=== PATIENT | female | born 1970 | race Caucasian/White ===

== ENCOUNTER → 2020-11-05 | Outpatient (CLI) | payer MEDICAID ==
--- NOTE | 2020-11-09 08:54 | MM ---
Reason for exam: screening (asymptomatic). Last mammogram was performed 7 years ago. History: Patient is postmenopausal and is nulliparous. Excisional biopsy of the left breast. Took hormonal contraceptives for 8 years. Physical Findings: A clinical breast exam by your physician is recommended on an annual basis and results should be correlated with mammographic findings. MG 3D Screening Mammo W/Cad Bilateral CC and MLO view(s) were taken. Prior study comparison: October 27, 2013, [facility] DIGITAL RIGHT MAMMOGRAM w/CAD. October 14, 2013, bilateral digital screening mammo w/CAD. The breast tissue is heterogeneously dense. This may lower the sensitivity of mammography. Areas of asymmetric density do not clearly persist on 3D images. Some low density circumscribed nodularity becomes apparent on 3D images. No significant changes when compared with prior studies. ASSESSMENT: Benign, BI-RAD 2 RECOMMENDATION: Routine screening mammogram of both breasts in 1 year. Patient should continue monthly self breast exams. A negative report should not preclude additional follow up of suspicious palpable abnormalities.
== END | disposition home or self-care (01) ==
LOC: RADMAMWWP 15:32
PROVIDERS: ATTEND Family Medicine
DX: Z12.31 Encounter for screening mammogram for malignant neoplasm of breast (principal)
CPT/HCPCS: 77063; 77067

== ENCOUNTER → 2022-06-30 | Outpatient (CLI) | payer MEDICAID | END | disposition home or self-care (01) | LOC: LABWHC1 13:29 | PROVIDERS: ATTEND Surgery Plastic and Reconstructive Surgery | DX: I11.9 Hypertensive heart disease without heart failure (principal) | CPT/HCPCS: 93005 ==

== ENCOUNTER 2022-07-13 05:56 | Day surgery (SDC) | payer MEDICAID ==
[2022-07-11 14:47] VITALS: BMI 26.6
[2022-07-12 10:36] LABS: HCT 37.4 % (34.0-46.0); HGB 11.9 gm/dL (11.4-16.0); MCH 30.9 pg (25.0-35.0); MCHC 31.9 g/dL (31.0-37.0); MCV 96.8 fL (80.0-100.0); Mean Platelet Volume 8.6; Platelet Count 227 k/uL (150-450); RBC 3.86 m/uL (3.80-5.40); RDW 13.3 % (11.5-15.5); WBC 4.8 k/uL (3.8-10.6)
--- NOTE | 2022-07-13 05:27 | P.GSHP ---
History of Present Illness H&P Date: 07/13/22 CHIEF COMPLAINT: Ventral hernia. HISTORY OF PRESENT ILLNESS: The patient is a 51-year-old female who presents with swelling along the abdomen for over 1 month with pain and tenderness. Findings were consistent with ventral hernia. Now she presents for further evaluation and management. PAST MEDICAL HISTORY: Please see list and reviewed. PAST SURGICAL HISTORY: Please see list and reviewed. MEDICATIONS: Please see list and reviewed. ALLERGIES: Please see list and reviewed. SOCIAL HISTORY: Please see list and reviewed. FAMILY HISTORY: No reports of Crohn disease or ulcerative colitis. REVIEW OF ORGAN SYSTEMS: CONSTITUTIONAL: No reports of fevers or chills. GI: Denies any blood in stools or constipation. HEENT: Denies any trouble with vision, hearing or nosebleeds. No difficulty swallowing. LYMPHATIC: The patient denies any lumps and bumps around the neck. ENDOCRINE: Denies any thyroid disorders. Denies any blood sugar glucose intolerance. RESPIRATORY: Denies pneumonia. Denies any troubles with breathing or dyspnea on exertion. CARDIOVASCULAR: Denies any chest pain, palpitations, or recent heart attacks. GENITOURINARY: Denies any blood in urine or increased urinary frequency. MUSCULOSKELETAL: Denies any back pain, stiffness, joint arthritis. NEUROLOGIC: Denies any numbness or tingling along the distal extremities. No seizure disorders or headaches. PSYCHIATRIC: Denies depression. No suidical ideation. HEMATOLOGIC: Denies any abnormal bleeding or bruising. BREASTS: Denies any breast lumps, pain or nipple discharge. PHYSICAL EXAM: VITAL SIGNS: Stable GENERAL: Well-developed pleasant female in no acute distress. HEENT: No scleral icterus. Extraocular movements grossly intact. Moist buccal mucosa. NECK: Supple without lymphadenopathy. CHEST: Unlabored respirations. Equal bilateral excursions. CARDIOVASCULAR: Regular rate and rhythm. Distal 2+ pulses. ABDOMEN: Soft, nondistended. Tender along the abdomen. Umbilical hernia. Protuberant. MUSCULOSKELETAL: No clubbing, cyanosis, or edema. SKIN: Well perfused. PSYCH: Alert and oriented. No focal or lateralizing signs. ASSESSMENT: 1. Ventral/umbilical hernia PLAN: 1. Recommend proceeding with robotic ventral hernia repair with mesh. 2. Benefits and risks of surgical intervention was discussed including possibility of open technique. 3. DVT prophylaxis. 4. Antibiotic prophylaxis. Past Medical History Past Medical History: No Reported History Additional Past Medical History / Comment(s): INCISIONAL HERNIA History of Any Multi-Drug Resistant Organisms: None Reported Past Surgical History: Tubal Ligation Additional Past Surgical History / Comment(s): LT BREAST LUMPECTOMY-BENIGN Past Anesthesia/Blood Transfusion Reactions: No Reported Reaction Smoking Status: Never smoker - Past Family History Mother Family Medical History: No Reported History Medications and Allergies Home Medications Medication Instructions Recorded Confirmed Type Cetirizine HCl [Zyrtec] 10 mg PO DAILY 11/03/14 07/11/22 History Multivit with Calcium,Iron,Min 1 each PO DAILY 07/11/22 07/11/22 History [Women's Multivitamin] Allergies Allergy/AdvReac Type Severity Reaction Status Date / Time adhesive Allergy Rash/Hives Verified 07/11/22 14:29 Results - Labs 07/12/22 10:30
[~2022-07-13 05:56] MED LIST: ACETAMINOPHEN TAB 500 MG TAB PO PRN; HEPARIN SODIUM,PORCINE/PF 5,000 UNIT/0.5 ML SYRINGE SQ PRN; LACTATED RINGERS 1,000 ML IV SCH; ONDANSETRON 4 MG/2 ML VIAL IVP ONE; SCOPOLAMINE 1 MG/72 HR PATCH TRANSDERM STA
[2022-07-13] MEDS ORDERED: GABAPENTIN 300 MG CAP PO PRN (06:00)
[2022-07-13] MEDS ORDERED: MELOXICAM 7.5 MG TAB PO PRN (06:00)
[2022-07-13] MEDS ORDERED: FAMOTIDINE 20 MG TAB PO ONE (06:00)
[2022-07-13] MEDS ORDERED: ONDANSETRON 4 MG/2 ML VIAL ONE ×2 (06:54→12:22)
[2022-07-13] MEDS ORDERED: fentaNYL (PF) 50 MCG/ML 2 ML AMP IV PRN (07:00)
[2022-07-13] MEDS ORDERED: DEXAMETHASONE SOD PHOSPHATE 4 MG/ML 1 ML VIAL IVP ONE (07:01)
[2022-07-13] MEDS ORDERED: MIDAZOLAM 2 MG/2 ML VIAL IVP ONE (07:11)
[2022-07-13] MEDS ORDERED: fentaNYL (PF) 50 MCG/ML 2 ML AMP IVP ONE (07:12)
[2022-07-13 07:27] LABS: Glucose,Whole Blood 84 mg/dL (70-110)
[2022-07-13] MEDS ORDERED: MIDAZOLAM 2 MG/2 ML VIAL ONE (08:09)
[2022-07-13] MEDS ORDERED: HYDROmorphone (PF) 1 MG/ML ONE (08:09)
[2022-07-13] MEDS ORDERED: NEOSTIGMINE 1 MG/ML 10 ML VIAL ONE (08:09)
[2022-07-13] MEDS ORDERED: ROPIVACAINE 5 MG/ML 30 ML VIAL ONE (08:09)
[2022-07-13] MEDS ORDERED: SODIUM CHLORIDE 0.9% (PF) 10 ML VIAL ONE (08:09)
[2022-07-13] MEDS ORDERED: ROCURONIUM 10 MG/ML (5 ML VIAL) IV ONE (08:09)
[2022-07-13] MEDS ORDERED: LIDOCAINE 2% INJ 20 MG/ML (2 ML VIAL) ONE (08:09)
[2022-07-13] MEDS ORDERED: PHENYLEPHRINE-0.9% NACL SYG 1,000 MCG/10 ML SYRINGE ONE (08:09)
[2022-07-13] MEDS ORDERED: SUCCINYLCHOLINE CHLORIDE 200 MG/10 ML VIAL IV ONE (08:09)
[2022-07-13] MEDS ORDERED: GLYCOPYRROLATE 0.2 MG/ML 2 ML VIAL ONE (08:09)
[2022-07-13] MEDS ORDERED: fentaNYL (PF) 50 MCG/ML 2 ML AMP ONE (08:09)
[2022-07-13] MEDS ORDERED: PROPOFOL 10 MG/ML 20 ML VIAL IV ONE (08:09)
--- NOTE | 2022-07-13 08:29 | P.ANPRN ---
Procedure Note - Anesthesia - Nerve Block Performed Bilateral Rectus Abdominis Time Out Performed: Yes (07:) Date of Procedure: 07/13/22 Procedure Start Time: Procedure Stop Time: Location of Patient: PreOp Indication: Acute Post-Operative Pain, Requested by Surgeon (Dr Borjas) Sedation Type: Sedate with meaningful contact maintained Preparation: Sterile Prep Position: Supine Catheter: None Needle Types: Pajunk Needle Gauge: 21 Ultrasound used to visualize needle placement: Yes Ultrasound used to observe medication spread: Yes Injectate: 0.5% Ropivacaine (see comment for volume) (15cc +10cc PF Normal saline each side) Blood Aspirated: No Pain Paresthesia on Injection Noted: No Resistance on Injection: Normal Image Stored and Saved: Yes Events: Uneventful and Well Tolerated
[2022-07-13] MEDS ORDERED: BUPIVACAIN-EPI 0.25%-1:200,000 30 ML VIAL SQ ONE (08:38)
[2022-07-13] MEDS ORDERED: LACTATED RINGERS 1,000 ML IV ONE ×2 (09:28→12:31)
[2022-07-13 09:46] VITALS: TEMP 96.8
--- NOTE | 2022-07-13 09:48 | P.OP ---
Date of Procedure: 07/13/22 Description of Procedure: SURGEON: STEPH FUENTES MD PREOPERATIVE DIAGNOSES: 1. Initial incarcerated incisional hernia POSTOPERATIVE DIAGNOSES: 1. Initial incarcerated incisional hernia, 2 x 3 cm OPERATION: 1. Robotic-assisted da Marce Xi laparoscopic repair of initial incarcerated in cisional ventral hernia with mesh, ventralight ST mesh 11.4 cm Anesthesia: GETA, regional, local Estimated Blood Loss (ml): 5 Pathology: 1. Incarcerated umbilical incisional hernia defect COMPLICATIONS: None. Operative Findings: 1. Incisional hernia defect 2 x 3 cm 2. Fascia repaired using #1 V-lock suture INDICATIONS: The patient is a 51-year-old female who presents with abdominal farrukh n and prior surgery through the umbilicus. Surgical intervention with laparoscopic versus robotic and open techniques were reviewed. Placement of mesh was also reviewed. Benefits and risks were thoroughly described. Informed consent was obtained. DESCRIPTION OF PROCEDURE: The patient was brought into the operating room and laid in supine position. After general induction, the abdomen had been prepped and draped in standard sterile fashion. Ioban draping was also placed. Prior to incision, a timeout protocol was confirmed with surgical team regarding the patient's name including procedures to be performed. The robot was primed prior to the procedure. A field block using local anesthetic was placed along hernia site including the proposed port sites. Initial incision was made with an #11 blade along the left upper quadrant. A 0 degree 5 mm laparoscopic trocar entry was performed and insufflated. Three 8 mm ports were placed along the left lateral abdominal wall under direct localization after exchanging the 5-mm for an 8 mm port. Placements of the ports were 15 cm from the target anatomy and 10 cm apart. An accessory 12 mm port was placed at the left upper quadrant for exchange of mesh including sutures. The [employer] Xi robot was previously primed, prepped and draped then docked from the right side of the patient onto the left side of the patient. I then sat at the robot [employer] Xi console where working arms of the robot including Bovie cautery connected to robotic scissors, needle hook up driver, and graspers placed by the therapeutic recreation assistant. Incarcerated omental contents were found along the umbilicus through old transverse incision scar. The defects were reduced with preperitoneal fat umbilical hernia defect 2 x 3 cm. The incarcerated contents were reduced as the peritoneal fat was cleaned from the abdominal wall. Next, hemostasis was checked with cautery. The hernia defect oversewn using #1 nonabsorbable V-lock suture with fascial imbrication x 2. Next, ventralight ST mesh 11.4 cm was placed with the rough side towards the abdominal wall as to cover the umbilical defect. 2-0 VLOC 9 inch green sutures were used to fixate the mesh. A final endoscopic imaging was obtained. All instruments and pneumoperitoneum were evacuated from the abdominal cavity. The da Macre Xi robot was undocked from the patient. I re-scrubbed into the case for closure of incisions. The fascia of the 12-mm port was probed and closed using Jorden Chandler and 0- Vicryl. The incisions were reapproximated using 4-0 Monocryl in an interrupted subcuticular fashion. Liquid glue was applied to the skin after cleansing the skin with normal saline and dilute hydrogen peroxide. An abdominal binder was placed. An umbilical dressing was placed prior. At the end of the procedure, needle, sponge, and instrument count had been verified correct by surgical services asst. The patient was taken to the postanesthesia care unit in stable condition. Plan - Discharge Summary Discharge Rx Participant: Yes New Discharge Prescriptions: New Cyclobenzaprine [Flexeril] 10 mg PO TID #30 tab Simethicone [Gas-X] 125 mg PO AC-TID PRN #20 capsule PRN Reason: Pain Ibuprofen [Motrin] 600 mg PO Q8HR PRN #30 tab PRN Reason: Pain Acetaminophen Tab [Tylenol Tab] 1,000 mg PO Q6HR PRN #30 tablet PRN Reason: Pain Continue Cetirizine HCl [Zyrtec] 10 mg PO DAILY Multivit with Calcium,Iron,Min [Women's Multivitamin] 1 each PO DAILY Discharge Medication List Cetirizine HCl [Zyrtec] 10 mg PO DAILY 11/03/14 [History] Multivit with Calcium,Iron,Min [Women's Multivitamin] 1 each PO DAILY 07/11/22 [History] Acetaminophen Tab [Tylenol Tab] 1,000 mg PO Q6HR PRN #30 tablet 07/13/22 [Rx] Cyclobenzaprine [Flexeril] 10 mg PO TID #30 tab 07/13/22 [Rx] Ibuprofen [Motrin] 600 mg PO Q8HR PRN #30 tab 07/13/22 [Rx] Simethicone [Gas-X] 125 mg PO AC-TID PRN #20 capsule 07/13/22 [Rx] Follow up Appointment(s)/Referral(s): Steph Fuentes MD [STAFF PHYSICIAN] - 07/18/22 (Telehealth) Patient Instructions/Handouts: Laparoscopic Herniorrhaphy (IP), Ventral Hernia (GEN), Ventral Hernia Repair (GEN), Abdominal Binder (DC) Activity/Diet/Wound Care/Special Instructions: DO NOT REMOVE UMBILICAL DRESSING UNTIL 07/20/22 Using antibacterial soap. No lifting over 4 pounds 4 weeks, Aug 12 May shower. No bathtub soaks for 2 weeks, Jul 27 Wear abdominal binder daily for comfort except for showering. Use ice along incisions for today to prevent swelling. Take tylenol, aleve/ibuprofen, simethicone scheduled for 3 days for best pain relief Discharge Disposition: HOME SELF-CARE
[2022-07-13] MEDS: HYDROmorphone 0.5 MG/0.5 ML SYRINGE IVP PRN ×2 (10:13→10:34)
[2022-07-13 11:07] VITALS: RESP 16
[2022-07-13] MEDS ORDERED: IBUPROFEN 200 MG TAB PO ONE (11:24)
[2022-07-13] MEDS ORDERED: ONDANSETRON 4 MG/2 ML VIAL IVP ONE (12:21)
[2022-07-13] MEDS ORDERED: ACETAMINOPHEN TAB 500 MG TAB ONE (14:22)
[2022-07-13] MEDS ORDERED: ACETAMINOPHEN TAB 500 MG TAB PO ONE (14:23)
[2022-07-13 14:32] VITALS: BP 116/75; PULSE 51
== END 2022-07-13 15:06 | disposition home or self-care (01) ==
LOC: OR 05:56
PROVIDERS: ATTEND Surgery Plastic and Reconstructive Surgery
DX: D19.1 Benign neoplasm of mesothelial tissue of peritoneum (principal); G89.18 Other acute postprocedural pain; K43.0 Incisional hernia with obstruction, without gangrene; L08.82 Omphalitis not of newborn; Z98.51 Tubal ligation status; Z90.12 Acquired absence of left breast and nipple; Z79.2 Long term (current) use of antibiotics; Z79.899 Other long term (current) drug therapy; Z91.040 Latex allergy status
CPT/HCPCS: 49655; 81025; 64999; 85027; 88302; C1781; J2250; J0330; J1100; J2710; J0690; J2405; J3010; J1170 ×2; J2795; J2370; J2704; J1644; J2001

== ENCOUNTER → 2023-04-18 | Outpatient (CLI) | payer MEDICAID ==
--- NOTE | 2023-04-20 07:53 | MM ---
Reason for Exam: Screening (asymptomatic). Last mammogram was performed 2 year(s) and 5 month(s) ago. Patient History: Menarche at age 20. First Full-Term at age 35. Late child-bearing (after 30). Premenopausal. Patient used Hormonal Contraceptives for 8 years. Excisional Biopsy on the Left side. Last menstrual period: 04/13/2023 Risk Values: Riddhi 5 year model risk: 1.4%. NCI Lifetime model risk: 13.0%. Prior Study Comparison: 10/14/2013 Bilateral Screening Mammogram, [facility]. 10/27/2013 Right Diagnostic Mammogram, [facility]. 11/05/2020 Bilateral Screening Mammogram, [facility]. Tissue Density: The breast tissue is heterogeneously dense. This may lower the sensitivity of mammography. Findings: Analyzed By CAD. Masslike area 6:00 position left breast 3.4 cm from the nipple. Additional views are recommended. No suspicious calcifications are present at this time. Overall Assessment: Incomplete: need additional imaging evaluation, BI-RAD 0 Management: Diagnostic Mammogram of the left breast. . Patient should continue monthly self-breast exams. A clinical breast exam by your physician is recommended on an annual basis. This exam should not preclude additional follow-up of suspicious palpable abnormalities. Note on Riddhi scores and lifetime risk: 1. A Riddhi score greater than 3% is considered moderate risk. If this is the case, consider specialist referral to assess eligibility for a risk reducing agent. 2. If overall lifetime risk for the development of breast cancer is 20% or higher, the patient may qualify for future screening with alternating mammogram and breast MRI. Electronically signed and approved by: Ray Vela M.D. Radiologis
== END | disposition home or self-care (01) ==
LOC: RADMAMWWP 14:54
PROVIDERS: ATTEND Family Medicine
DX: Z12.31 Encounter for screening mammogram for malignant neoplasm of breast (principal)
CPT/HCPCS: 77063; 77067

== ENCOUNTER → 2023-04-27 | Outpatient (CLI) | payer MEDICAID ==
--- NOTE | 2023-04-27 09:42 | MM ---
Reason for Exam: Additional evaluation requested from abnormal screening. Last screening mammogram was performed less than 1 month ago. Patient History: Menarche at age 20. First Full-Term at age 35. Late child-bearing (after 30). Premenopausal. Patient used Hormonal Contraceptives for 8 years. Excisional Biopsy on the Left side. Last menstrual period: 04/13/2023 Risk Values: Riddhi 5 year model risk: 1.4%. NCI Lifetime model risk: 13.0%. Prior Study Comparison: 10/14/2013 Bilateral Screening Mammogram, [facility]. 10/27/2013 Right Diagnostic Mammogram, [facility]. 11/05/2020 Bilateral Screening Mammogram, [facility]. 04/18/2023 Bilateral MG 3D screening mammo w/cad, [facility]. Tissue Density: Left: The breast tissue is heterogeneously dense. This may lower the sensitivity of mammography. Findings: Analyzed By CAD. Approximate 2.4 cm obscured mass appears to not awakening on additional views anteriorly in the left breast slightly inferior to the nipple. Overall Assessment: Incomplete: need additional imaging evaluation, BI-RAD 0 Management: Diagnostic Breast Ultrasound of the left breast. Targeted ultrasound left breast. Results were given to the patient verbally at the time of exam. Patient should continue monthly self-breast exams. A clinical breast exam by your physician is recommended on an annual basis. This exam should not preclude additional follow-up of suspicious palpable abnormalities. Note on Riddhi scores and lifetime risk: 1. A Riddhi score greater than 3% is considered moderate risk. If this is the case, consider specialist referral to assess eligibility for a risk reducing agent. 2. If overall lifetime risk for the development of breast cancer is 20% or higher, the patient may qualify for future screening with alternating mammogram and breast MRI. Electronically signed and approved by: Tyree Hansen M.D.
--- NOTE | 2023-04-27 10:41 | USB ---
Reason for Exam: Additional evaluation requested from abnormal screening. Patient History: Menarche at age 20. First Full-Term at age 35. Late child-bearing (after 30). Premenopausal. Patient used Hormonal Contraceptives for 8 years. Excisional Biopsy on the Left side. Risk Values: Riddhi 5 year model risk: 1.4%. NCI Lifetime model risk: 13.0%. Technique: Method: Targeted. Prior Study Comparison: 10/27/2013 Right Diagnostic Mammogram, [facility]. 11/05/2020 Bilateral Screening Mammogram, [facility]. 04/18/2023 Bilateral MG 3D screening mammo w/cad, [facility]. Findings: The lower section of the breast of the left breast, the axilla of the left breast and the retroareolar of the left breast were scanned. Targeted ultrasound confirms a 1.7 x 1.0 x 1.7 cm simple appearing thin-walled cyst at 5:00 position 4 cm distance from nipple with possible tiny adjacent thin-walled cysts believed to correspond to the mammogram abnormality.. Overall Assessment: Benign, BI-RAD 2 Management: Screening Mammogram of both breasts in 1 year. Return to routine follow-up. Results were given to the patient verbally at the time of exam. Electronically signed and approved by: Tyree Hansen M.D.
== END | disposition home or self-care (01) ==
LOC: RADMAMWWP 09:01
PROVIDERS: ATTEND Family Medicine
DX: R92.8 Other abnormal and inconclusive findings on diagnostic imaging of breast (principal)
CPT/HCPCS: 77061; 77065